=== PATIENT | female | born 1980 | race African-American/Black ===

== ENCOUNTER 2019-05-01 18:08 | Emergency (ER) | payer OTHER, SELFPAY | END 2019-05-01 19:21 | disposition home or self-care (01) | LOC: ERS 18:08 | DX: J02.9 Acute pharyngitis, unspecified (principal); J45.909 Unspecified asthma, uncomplicated; F17.210 Nicotine dependence, cigarettes, uncomplicated | CPT/HCPCS: 87081; 87430; 99283 ==